=== PATIENT | male | born 2000 | race Hispanic/Latino ===

== ENCOUNTER 2021-03-31 01:01 | Emergency (ER) | payer BC ==
[2021-03-31 01:36] LABS: Absolute Lymphocytes (CBC) 3.2 K/uL (0.7-4.9); Basophils % 0.6 % (0-1.3); Hematocrit 47.5 % (39.6-49.0); Lymphocytes % 19.6 % (15.3-44.8); MPV 11.6 fL (7.6-11.3)
[2021-03-31 01:40] LABS: Protime INR 0.97
[2021-03-31] MEDS ORDERED: NA CHLORIDE 0.9% 1,000 ML ONE ×2 (01:48→04:20)
[2021-03-31 01:59] LABS: ALT/SGPT 14 U/L (12-78); AST/SGOT 18 U/L (15-37); Albumin 4.6 g/dL (3.4-5.0); Alkaline Phosphatase 73 U/L (45-117); BUN Blood Urea Nitrogen 10 mg/dL (7-18); Bicarbonate 22 mmol/L (21-32); Bilirubin Direct 0.3 mg/dL (0-0.2); Glucose Level 297 mg/dL (74-106); Potassium 3.9 mmol/L (3.5-5.1); Protein, Total 7.4 g/dL (6.4-8.2); Sodium Level 140 mmol/L (136-145)
[2021-03-31] MEDS ORDERED: ONDANSETRON 4 MG/2 ML VIAL ONE (03:53)
[2021-03-31] MEDS ORDERED: NALOXONE HCL 2 MG/2 ML VIAL ONE (04:25)
[2021-03-31 05:55] LABS: Barbiturates NEGATIVE (NEGATIVE); Benzodiazepines NEGATIVE (NEGATIVE); Cocaine NEGATIVE (NEGATIVE); METHAMPHETAM NEGATIVE (NEGATIVE); Methadone NEGATIVE (NEGATIVE); Opiates NEGATIVE (NEGATIVE); Phencyclidine NEGATIVE (NEGATIVE); THC Cannibis POSITIVE (NEGATIVE)
--- NOTE | 2021-03-31 06:39 | ER ---
Nurse's Notes [facility] Name: Roberth Keating Age: 20 yrs Sex: Male : 2000 Arrival Date: 03/31/2021 Time: 01:05 Bed 4 Private MD: Diagnosis: Opiate overdose;Cannabis abuse Presentation: 03/31 01:13 Chief complaint: EMS states: Toned out to pt's home by friend, reported pt took one ea Percocet at around 2230, EMS reported pt was hypoxic, hypotensive and unresponsive. EMS reports they gave 4 of Narcan and pt woke. En route he was A \T\ O x 3. Coronavirus screen: At this time, the client does not indicate any symptoms associated with coronavirus-19. Ebola Screen: No symptoms or risks identified at this time. Initial Sepsis Screen: Does the patient meet any 2 criteria? No. Patient's initial sepsis screen is negative. Does the patient have a suspected source of infection? No. Patient's initial sepsis screen is negative. Risk Assessment: Do you want to hurt yourself or someone else? Patient reports no desire to harm self or others. Onset of symptoms was March 31, 2021. 01:13 Acuity: ALAN 3 ea 01:13 Method Of Arrival: EMS: [facility] ea Historical: - Allergies: 01:16 No Known Allergies; ea - Home Meds: 01:16 None [Active]; ea - PSHx: 01:16 None; ea - Immunization history:: Adult Immunizations up to date. - Social history:: Smoking status: Patient denies any tobacco usage or history of. Screenin:11 Abuse screen: Denies threats or abuse. Nutritional screening: No deficits noted. ea Tuberculosis screening: No symptoms or risk factors identified. Fall Risk IV access (20 points). Assessment: 01:16 General: Appears in no apparent distress. Behavior is calm, cooperative, appropriate ea for age. Pain: Denies pain. Neuro: Level of Consciousness is awake, alert, obeys commands, Oriented to person, place, time. Cardiovascular: Patient's skin is warm and dry. Respiratory: Airway is patent Respiratory effort is even, unlabored, Respiratory pattern is regular, symmetrical. Derm: Skin is pink, warm \T\ dry. 01:20 Reassessment: Poison control notified, tox level workup, watch 3 to 4 hours recheck ea Tylenol level if less than 150 he may discharge. 01:51 Reassessment: Patient and/or family updated on plan of care and expected duration. Pain ea level reassessed. Patient is alert, oriented x 3, equal unlabored respirations, skin warm/dry/pink. 06:56 Reassessment: Patient and/or family updated on plan of care and expected duration. Pain ea level reassessed. Patient is alert, oriented x 3, equal unlabored respirations, skin warm/dry/pink. Discharge instruction given to patient verbalized the understanding of instruction. Pt left ED ambulatory tolerating well. accompanied by friend. Vital Signs: 01:13 BP 109 / 86; Pulse 119; Resp 17; Temp 97.7; Pulse Ox 100% ; ea 03:00 BP 100 / 69; Pulse 82; Resp 18; Pulse Ox 98% ; ea 04:00 BP 119 / 79; Pulse 94; Resp 18; Pulse Ox 100% on R/A; ea 06:32 BP 116 / 76; Pulse 97; Resp 17; Pulse Ox 98% ; ea ED Course: 01:05 Patient arrived in ED. lh3 01:05 Matteo Richards MD is Attending Physician. tw4 01:11 Maintain EMS IV. Dressing intact. Good blood return noted. Site clean \T\ dry. Gauge \T\ ea site: 20 G LAC . 01:16 Triage completed. ea 01:16 Arm band placed on right wrist. Patient placed in an exam room, on a stretcher, on ea pulse oximetry. 01:16 Patient has correct armband on for positive identification. Bed in low position. Call ea light in reach. Side rails up X2. 04:55 Solo Moss, RN is Primary Nurse. wg 06:32 No provider procedures requiring assistance completed. IV discontinued, intact, ea bleeding controlled, No redness/swelling at site. Pressure dressing applied. Administered Medications: 01:25 Drug: NS 0.9% 1000 ml Route: IV; Rate: 1 bolus; Site: left antecubital; ea 06:58 Follow up: IV Status: Completed infusion; IV Intake: 1000ml ea 03:29 Drug: Zofran (Ondansetron) 4 mg Route: IVP; Site: right antecubital; bc5 06:58 Follow up: Response: No adverse reaction ea 03:56 Drug: NS 0.9% 1000 ml Route: IV; Rate: 1 bolus; Site: left antecubital; ea 06:58 Follow up: Response: No adverse reaction; IV Status: Completed infusion; IV Intake: ea 1000ml Intake: 06:58 IV: 1000ml; Total: 1000ml. ea 06:58 IV: 1000ml; Total: 2000ml. ea Outcome: 06:38 Discharge ordered by . tw4 06:56 Discharged to home ambulatory, with family. ea 06:56 Condition: stable 06:56 Discharge instructions given to patient, Instructed on discharge instructions, follow up and referral plans. Demonstrated understanding of instructions, follow-up care. 06:57 Patient left the ED. ea Signatures: Corry Avila RN RN Matteo Grady MD MD tw4 Svetlana Pineda RN RN 3 Solo Moss, Taya Murcia, RN RN bc5 Corrections: (The following items were deleted from the chart) 01:13 01:11 Inserted saline lock: 20 gauge in left antecubital area, using aseptic technique. ea Blood collected. ea
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
[2021-03-31 07:03] VITALS: TEMP 97.7
[2021-03-31 07:07] VITALS: BP 116/76; O2SAT 98
== END 2021-03-31 06:57 | disposition home or self-care (01) ==
LOC: ER 01:01
DX: T40.2X1A Poisoning by other opioids, accidental (unintentional), initial encounter (principal); F12.10 Cannabis abuse, uncomplicated
CPT/HCPCS: 96361; 93005; 85025; 80048; 36415; 80320; 80329 ×2; 85610; 80076; 85730; 80307; 96374; 99284; J2310; J7030 ×2; J2405

== ENCOUNTER 2021-11-13 14:32 | Emergency (ER) | payer BC, OTHER ==
[2021-11-13] MEDS ORDERED: NA CHLORIDE 0.9% 1,000 ML ONE (15:12)
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
[2021-11-13 15:40] LABS: Urine Blood Negative (Negative); Urine Glucose Negative (Negative); Urine Protein Negative (Negative)
[2021-11-13 15:51] LABS: Barbiturates NEGATIVE (NEGATIVE); Benzodiazepines POSITIVE (NEGATIVE); Cocaine NEGATIVE (NEGATIVE); METHAMPHETAM NEGATIVE (NEGATIVE); Methadone NEGATIVE (NEGATIVE); Opiates NEGATIVE (NEGATIVE); Phencyclidine NEGATIVE (NEGATIVE); THC Cannibis NEGATIVE (NEGATIVE)
[2021-11-13 16:03] LABS: Absolute Lymphocytes (CBC) 1.2 K/uL (0.7-4.9); Lymphocytes % 16.3 % (15.3-44.8); RBC Red Blood Cell Count 4.82 M/uL (4.33-5.43)
[2021-11-13 16:19] LABS: BUN Blood Urea Nitrogen 11 mg/dL (7-18); Bicarbonate 26 mmol/L (21-32); Glucose Level 99 mg/dL (74-106); Potassium 4.1 mmol/L (3.5-5.1); Sodium Level 139 mmol/L (136-145)
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
[2021-11-13 18:19] VITALS: BP 97/61; O2SAT 99
== END 2021-11-13 18:12 | disposition home or self-care (01) ==
LOC: ER 14:32
DX: R41.82 Altered mental status, unspecified (principal); R53.1 Weakness; V48.5XXA Car driver injured in noncollision transport accident in traffic accident, initial encounter
CPT/HCPCS: 85025; 80048; 36415; 80320; 86900; 86850; 86901; 81003; 80307; 70450; 72125; 71260; 74177; Q9967; J7030; 93005

== ENCOUNTER 2021-11-15 13:36 | Emergency (ER) | payer OTHER ==
[2021-11-15] MEDS ORDERED: NA CHLORIDE 0.9% 1,000 ML IV ONE (13:37)
[2021-11-15] MEDS ORDERED: NALOXONE 0.4 MG/ML VIAL IM ONE (13:37)
[2021-11-15 14:17] LABS: Absolute Lymphocytes (CBC) 4.1 K/uL (0.7-4.9); Hematocrit 43.3 % (39.6-49.0); Lymphocytes % 43.3 % (15.3-44.8); MPV 11.7 fL (7.6-11.3); RBC Red Blood Cell Count 4.93 M/uL (4.33-5.43)
[2021-11-15 14:28] LABS: Protime INR 1.13
--- NOTE | 2021-11-15 14:31 | RAD REPORT ---
EXAM DESCRIPTION: CT - Head C Spine Mpr Wo Con - 11/15/2021 2:14 pm CLINICAL HISTORY: Head and neck injury status post fall. Head and neck pain. Overdose COMPARISON: None. TECHNIQUE: Computed axial tomography of the head and cervical spine was obtained. Sagittal and coronal reconstruction was performed. All CT scans are performed using dose optimization technique as appropriate and may include automated exposure control or mA/KV adjustment according to patient size. FINDINGS: An intracranial bleed is not seen. The ventricles are normal in caliber. An extra-axial fl uid collection is not noted.Fluid within the visualized sinuses and mastoids is not seen A cervical fracture is not visualized. No dislocation is noted. No high-grade central/foraminal stenosis seen IMPRESSION: No acute intracranial abnormality is seen. A cervical fracture is not visualized. If the patient continues to have symptoms to suggest intracra nial /spinal cord pathology then MRI would be recommended
[2021-11-15 15:16] LABS: Urine Blood Trace-intact (Negative); Urine Glucose Negative (Negative); Urine Protein 2+ (Negative); Urine Specific Gravity >=1.030 (1.005-1.030)
[2021-11-15 15:30] LABS: Barbiturates NEGATIVE (NEGATIVE); Benzodiazepines POSITIVE (NEGATIVE); Cocaine NEGATIVE (NEGATIVE); METHAMPHETAM NEGATIVE (NEGATIVE); Methadone NEGATIVE (NEGATIVE); Opiates NEGATIVE (NEGATIVE); Phencyclidine NEGATIVE (NEGATIVE); THC Cannibis POSITIVE (NEGATIVE)
[2021-11-15 15:34] LABS: ALT/SGPT 45 U/L (12-78); AST/SGOT 47 U/L (15-37); Albumin 4.3 g/dL (3.4-5.0); BUN Blood Urea Nitrogen 11 mg/dL (7-18); Bicarbonate 24 mmol/L (21-32); Bilirubin Direct 0.2 mg/dL (0-0.2); Glucose Level 180 mg/dL (74-106); Potassium 3.7 mmol/L (3.5-5.1); Protein, Total 6.9 g/dL (6.4-8.2); Sodium Level 144 mmol/L (136-145)
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
--- NOTE | 2021-11-15 15:40 | EDPHYS ---
Physician Documentation [facility] Name: Roberth Keating Age: 20 yrs Sex: Male : 2000 Arrival Date: 11/15/2021 Time: 13:38 Bed 3 Private MD: ED Physician Misael Valdez HPI: 11/15 13:55 This 20 yrs old Male presents to ER via Carried with complaints of Overdose. cp 13:55 The patient presents with decreased responsiveness. Onset: The symptoms/episode cp began/occurred just prior to arrival. 13:55 Possible causes: drug use. Current symptoms: In the emergency department the patient's cp symptoms are unchanged from the initial presentation, despite home interventions. Patient's baseline: Neuro: alert and fully oriented, Motor: no deficits, Ambulation: walks without assistance, Speech: normal. Unable to obtain HPI due to altered mental status. Historical: - Allergies: 13:47 No Known Allergies; jd3 - Home Meds: 13:47 None [Active]; jd3 - PMHx: 13:47 None; jd3 - PSHx: 13:47 bilateral feet; jd3 - Immunization history:: Adult Immunizations up to date, Client reports having NOT received the Covid vaccine. Flu vaccine status is unknown. - Social history:: Smoking status: Reported history of juuling and/or vaping. ROS: 14:00 Neuro: Positive for altered mental status. cp 14:00 Constitutional: Negative for fever. cp 14:00 Unable to obtain ROS due to altered mental status. Exam: 14:05 Constitutional: The patient appears non-diaphoretic, non-toxic, well developed, well cp nourished. 14:05 Head/Face: Normocephalic, atraumatic. cp 14:05 Eyes: Periorbital structures: appear normal, Pupils: pinpoint, bilaterally, Conjunctiva: normal, no exudate, no injection, Lids and lashes: appear normal, bilaterally. 14:05 ENT: External ear(s): are unremarkable, Ear canal(s): are normal, clear, TM's: dullness, bilaterally, Nose: is normal, Mouth: Lips: moist, Oral mucosa: pink and intact, moist, Posterior pharynx: Airway: no evidence of obstruction, patent. 14:05 Chest/axilla: Inspection: normal. 14:05 Cardiovascular: Rate: tachycardic, Rhythm: regular. 14:05 Respiratory: moderate respiratory distress is noted, Respirations: shallow respirations, that is moderate, Breath sounds: are clear throughout, no decreased breath sounds, no stridor, no wheezing. 14:05 Abdomen/GI: Inspection: abdomen appears normal, Palpation: soft, in all quadrants. 14:05 Neuro: Orientation: Not oriented to person, place, situation, Mentation: unable to follow commands. Vital Signs: 13:30 BP 127 / 60; Pulse 140; Resp 5; Pulse Ox 100% on 100% BVM; jd3 13:48 BP 111 / 64; Pulse 118; Resp 18 S; Temp 97.3(TE); Pulse Ox 100% on 2 lpm NC; Weight jd3 43.09 kg (R); Height 5 ft. 3 in. (160.02 cm) (R); Pain 0/10; 15:06 BP 108 / 72; Pulse 80; Resp 18 S; Pulse Ox 100% on R/A; jd3 13:48 Body Mass Index 16.83 (43.09 kg, 160.02 cm) jd3 MDM: 13:54 Patient medically screened. cp 14:00 Differential Diagnosis: alcohol intoxication, hypoglycemia, intracranial bleed, cp overdose, seizure, sepsis. 15:38 Data reviewed: vital signs, nurses notes, lab test result(s), EKG, radiologic studies, cp CT scan, plain films. 15:38 Test interpretation: by ED physician or midlevel provider: ECG, plain radiologic cp studies. Response to treatment: the patient's symptoms have markedly improved after treatment. 15:38 ED course: VSS. Patient responsive to IV Narcan. Now alert times 3, ambulating w/o cp assistance and patient requesting discharge to home. 11/15 13:54 Order name: Acetaminophen 11/15 13:54 Order name: Basic Metabolic Panel 11/15 15:37 Interpretation: Normal except: CL 111; GLUC 180. 11/15 13:54 Order name: CBC with Diff; Complete Time: 15:09 11/15 15:09 Interpretation: Normal except: WBC 9.5; MPV 11.7. 11/15 13:54 Order name: ETOH Level; Complete Time: 15:09 11/15 15:10 Interpretation: Reviewed. cp 11/15 13:54 Order name: Hepatic Function cp 11/15 15:36 Interpretation: Normal except: AST 47. cp 11/15 13:54 Order name: PT-INR; Complete Time: 15:09 cp 11/15 13:54 Order name: Ptt, Activated; Complete Time: 15:09 cp 11/15 13:54 Order name: Salicylate; Complete Time: 15:09 cp 11/15 13:54 Order name: Urine Drug Screen; Complete Time: 15:36 cp 11/15 13:54 Order name: EKG; Complete Time: 13:55 cp 11/15 13:54 Order name: CT Head C Spine; Complete Time: 15:09 cp 11/15 15:10 Interpretation: Reviewed report. cp 11/15 15:17 Order name: Urine Dipstick-Ancillary; Complete Time: 15:36 EDMS 11/15 15:36 Interpretation: Normal except: UKET 1+; UBLD Trace-intact; UPROT 2+. cp 11/15 13:54 Order name: EKG - Nurse/Tech; Complete Time: 13:55 cp 11/15 13:54 Order name: IV Saline Lock; Complete Time: 13:55 cp 11/15 13:54 Order name: Labs collected and sent; Complete Time: 13:55 cp 11/15 13:54 Order name: Suicide Screening ([place]); Complete Time: 13:55 cp 11/15 13:54 Order name: Urine Dipstick-Ancillary (obtain specimen); Complete Time: 15:44 cp Administered Medications: 13:30 Drug: NS 0.9% 1000 ml Route: IV; Rate: 1 bolus; Site: left antecubital; jd3 14:30 Follow up: Response: No adverse reaction; IV Status: Completed infusion; IV Intake: jd3 1000ml 13:30 Drug: NARcan (naloxone) 2 mg Route: IVP; Site: left antecubital; jd3 14:30 Follow up: Response: No adverse reaction jd3 Disposition: 11/16 15:39 Co-signature as Attending Physician, Misael Valdez MD I agree with the assessment and kdr plan of care. Disposition Summary: 11/15/21 15:39 Discharge Ordered Location: Home cp Problem: new cp Symptoms: have improved cp Condition: Stable cp Diagnosis - Adverse effect of benzodiazepines cp - Adverse effect of other opioids, initial encounter cp Followup: cp - With: Emergency Department - When: As needed - Reason: Worsening of condition Discharge Instructions: - Discharge Summary Sheet cp - Opioid Overdose cp - Benzodiazepine Overdose cp Forms: - Medication Reconciliation Form cp - Thank You Letter cp - Antibiotic Education cp - Prescription Opioid Use cp Signatures: Dispatcher [employer] EDMS Misael Valdez MD MD kdr Page, Corey, PA PA cp Davies, Jonathon RN RN jd3
[2021-11-15 15:48] LABS: Alkaline Phosphatase 53 U/L (45-117)
[2021-11-15 16:59] VITALS: TEMP 97.3; O2SAT 100
[2021-11-15 17:01] VITALS: BP 108/72
--- NOTE | 2021-11-16 09:45 | EKG ---
Test Date: 2021-11-15 Test Time: 13:39:13 Coroner Technician: MEHDI MEASUREMENT RESULTS: Intervals: Rate: 116 NH: 156 QRSD: 92 QT: 340 QTc: 472 [place]: P: 85 NH: 156 QRS: 91 T: 75 INTERPRETIVE STATEMENTS: Sinus tachycardia Rightward axis Borderline ECG Compared to ECG 11/13/2021 14:42:10 Right-axis deviation now present Atrial abnormality no longer present Electronically Signed On 11-16-21 09:44:00 CDT by Stephen Garrison
== END 2021-11-15 15:47 | disposition home or self-care (01) ==
LOC: ER 13:36
DX: R41.82 Altered mental status, unspecified (principal); T42.4X5A Adverse effect of benzodiazepines, initial encounter; T40.2X5A Adverse effect of other opioids, initial encounter
CPT/HCPCS: 96361; 93005; 85025; 80048; 36415; 80320; 80329 ×2; 85610; 80076; 85730; 81003; 80307; 70450; 72125; 96374; 99291; 99292; J2310; J7030

== ENCOUNTER 2021-11-27 15:16 | Emergency (ER) | payer OTHER ==
[2021-11-27] MEDS ORDERED: NALOXONE 0.4 MG/ML VIAL ONE (15:21)
[2021-11-27] MEDS ORDERED: NALOXONE HCL 2 MG/2 ML VIAL ONE (15:24)
[2021-11-27 15:42] LABS: Absolute Lymphocytes (CBC) 2.9 K/uL (0.7-4.9); Hematocrit 40.7 % (39.6-49.0); Lymphocytes % 19.3 % (15.3-44.8); MPV 10.4 fL (7.6-11.3); RBC Red Blood Cell Count 4.66 M/uL (4.33-5.43)
[2021-11-27 15:46] LABS: Protime INR 1.02
[2021-11-27 15:58] LABS: AST/SGOT 10 U/L (15-37); Alkaline Phosphatase 66 U/L (45-117); BUN Blood Urea Nitrogen 14 mg/dL (7-18); Bicarbonate 28 mmol/L (21-32); Bilirubin Direct 0.2 mg/dL (0-0.2); Bilirubin Total 0.5 mg/dL (0.2-1.0); Glucose Level 208 mg/dL (74-106); Potassium 3.5 mmol/L (3.5-5.1); Sodium Level 141 mmol/L (136-145)
[2021-11-27 16:03] LABS: ALT/SGPT 13 U/L (12-78)
[2021-11-27] MEDS ORDERED: NA CHLORIDE 0.9% 1,000 ML ONE (16:22)
--- NOTE | 2021-11-27 19:01 | EDPHYS ---
Physician Documentation [facility] Name: Roberth Keating Age: 20 yrs Sex: Male : 2000 Arrival Date: 11/27/2021 Time: 15:18 Bed 3 Private MD: ED Physician Denis Dupree HPI: 11/27 15:25 This 20 yrs old Male presents to ER via Carried with complaints of Possible ms3 Overdose. 15:25 The patient presents to the emergency department after a known overdose, a result of ms3 recreational substance abuse. Context: Time: 2 hour(s) ago, Extent: Less than 1 Percocet. Associated signs and symptoms: The patient has no apparent associated signs or symptoms. Severity of symptoms: Pain is currently a 0 / 10. 20-year-old male with past medical history of opioid overdose presents for overdose. Patient's father states patient checked himself on a rehab after 7 days and came home. Patient's father was at home for lunch and patient's friend was taking patient back to rehab when patient's father noted patient to be altered. Patient's father then took patient to the emergency department.. Historical: - Allergies: 15:22 No Known Allergies; ss - PSHx: 15:22 bilateral feet; ss - Immunization history:: Adult Immunizations unknown. - Social history:: Smoking status: unknown. ROS: 15:46 Constitutional: Negative for fever, and chills. Eyes: Negative for injury, pain, ms3 redness, and discharge, Cardiovascular: Negative for chest pain, and palpitations. Respiratory: Negative for shortness of breath, cough, wheezing, and pleuritic chest pain, Abdomen/GI: Negative for abdominal pain, nausea, vomiting, diarrhea, and constipation, MS/Extremity: Negative for injury and deformity, Skin: Negative for injury, rash, and discoloration. Exam: 15:21 ECG was reviewed by the Attending Physician. ms3 15:46 Constitutional: This is a well developed, well nourished patient who is awake, alert, ms3 and in no acute distress. Head/Face: Normocephalic, atraumatic. Neck: Trachea midline, no cervical lymphadenopathy. Supple, full range of motion without nuchal rigidity, or vertebral point tenderness. No Meningismus. Chest/axilla: Normal chest wall appearance and motion. Nontender with no deformity. Cardiovascular: Regular rate and rhythm with a normal S1 and S2. No gallops, murmurs, or rubs. Normal PMI, no JVD. No pulse deficits. Respiratory: Lungs have equal breath sounds bilaterally, clear to auscultation and percussion. No rales, rhonchi or wheezes noted. No increased work of breathing, no retractions or nasal flaring. Abdomen/GI: Soft, non-tender, with normal bowel sounds. No distension or tympany. No guarding or rebound. No evidence of tenderness throughout. Back: No spinal tenderness. No costovertebral tenderness. Full range of motion. Skin: Warm, dry with normal turgor. Normal color with no rashes, no lesions, and no evidence of cellulitis. 15:46 Neuro: Orientation: is normal, Mentation: slow to respond. Vital Signs: 15:15 Pulse Ox 80% on R/A; ss 15:22 BP 117 / 71; Pulse 140; Resp 14; Pulse Ox 100% on Non-rebreather mask; ss 15:34 BP 106 / 78; Pulse 109; Resp 15 S; Pulse Ox 100% on R/A; jd3 16:55 BP 90 / 60; Pulse 66; Resp 16 S; Pulse Ox 100% on R/A; jd3 18:00 BP 98 / 67; Pulse 67; Resp 18; Temp 98.0; Pulse Ox 99% on R/A; ph 19:00 BP 91 / 60; Pulse 81; Resp 16; Pulse Ox 100% on R/A; jb4 MDM: 15:34 Patient medically screened. ms3 17:04 ED course: patient mentation improved. Will continue to monitor. ms3 21:36 Differential diagnosis: Ingestion/exposure to Opioid hypoglycemia, Electrolyte ms3 abnormality. Data reviewed: vital signs, nurses notes, lab test result(s), EKG. Counseling: I had a detailed discussion with the patient and/or guardian regarding: the historical points, exam findings, and any diagnostic results supporting the discharge/admit diagnosis, lab results, the need for outpatient follow up, to return to the emergency department if symptoms worsen or persist or if there are any questions or concerns that arise at home. ED course: Discussed EKG, labs, and PE findings with patient. Patient to follow up with PMD in 2-3 days. Patient understands/ agrees with plan. All questions answered. Return precautions given to include worsening symptoms, or any other concerns. Patient is improved, in NAD, non-toxic appearing, ambulatory in ED, speaking full sentences. Patient father at bedside and agrees with discharge and will be taking patient home and to rehab. Discussed Narcan Rx use with patient's father in detail.. 11/27 15:24 Order name: Acetaminophen; Complete Time: 16:13 ms3 11/27 15:24 Order name: Basic Metabolic Panel; Complete Time: 16:13 ms3 11/27 15:24 Order name: CBC with Diff; Complete Time: 16:13 ms3 11/27 15:24 Order name: ETOH Level; Complete Time: 16:13 ms3 11/27 15:24 Order name: Hepatic Function; Complete Time: 16:13 ms3 11/27 15:24 Order name: PT-INR; Complete Time: 16:13 ms3 11/27 15:24 Order name: Ptt, Activated; Complete Time: 16:13 ms3 11/27 15:24 Order name: Salicylate ms3 11/27 15:24 Order name: EKG; Complete Time: 15:25 ms3 11/27 15:24 Order name: EKG - Nurse/Tech; Complete Time: 15:27 ms3 11/27 15:24 Order name: IV Saline Lock; Complete Time: 15:27 ms3 11/27 15:24 Order name: Labs collected and sent; Complete Time: 15:34 ms3 11/27 15:24 Order name: Suicide Screening ([place]); Complete Time: 15:27 ms3 EC:21 Rate is 138 beats/min. Rhythm is regular. QRS [place] is Normal. QRS interval is normal. ms3 Clinical impression: Sinus tachycardia. Interpreted by me. Administered Medications: 15:17 Drug: NARcan (naloxone) 0.4 mg Route: IVP; Site: right antecubital; ss 15:23 Follow up: Response: No adverse reaction; Marked relief of symptoms ss 15:20 Drug: NARcan (naloxone) 1 mg Route: IVP; Site: right antecubital; ph 16:20 Follow up: Response: No adverse reaction jd3 15:24 CANCELLED (errorr): NARcan (naloxone) 1 mg IVP once ms3 Disposition Summary: 11/27/21 19:00 Discharge Ordered Location: Home ms3 Condition: Stable ms3 Diagnosis - Accidental Drug overdose- opioid ms3 - Altered mental status, unspecified ms3 Followup: ms3 - With: Wong Aldridge MD - When: 2 - 3 days - Reason: Recheck today's complaints Discharge Instructions: - Discharge Summary Sheet jmm - Opioid Overdose ms3 Forms: - Medication Reconciliation Form ms3 - Thank You Letter ms3 - Antibiotic Education ms3 - Prescription Opioid Use ms3 Prescriptions: - Narcan 4 mg/actuation Nasal spray,non-aerosol - spray 0.1 milliliter by INTRANASAL route as directed may give additional doses jmm every 2-3 mins (alternating nostrils) until response or medical assistance; 1 Pump; Refills: 0, Product Selection Permitted Critical care time excluding procedures: 21:36 Critical care time: Bedside Care: 25 minutes, Consultation: 10 minutes, Family ms3 Intervention: 10 minutes. Total time: 45 minutes Signatures: Dispatcher [employer] EDMercy Muñoz RN RN April Ruiz ph D, RN RNavies, Jonathon, RN RN jd3 Denis Dupree, DO ms3 Corrections: (The following items were deleted from the chart) 15:24 15:23 NARcan (naloxone) 1 mg IVP once ordered. ms3 ms3 19:23 15:24 Urine Dipstick-Ancillary ordered. ms3 jb4
--- NOTE | 2021-11-27 19:01 | ER ---
Nurse's Notes [facility] Name: Roberth Keating Age: 20 yrs Sex: Male : 2000 Arrival Date: 11/27/2021 Time: 15:18 Bed 3 Private MD: Diagnosis: Accidental Drug overdose- opioid;Altered mental status, unspecified Presentation: 11/27 15:20 Chief complaint: Parent and/or Guardian states: "He just got out of rehab today and his ss friend dropped him off and it looked like he took something. His friend said, "I don't know what he did." Pt is minimally responsive upon arrival. Father carried patient to exam room. 80% on RA. Coronavirus screen: Client denies travel out of the [place] in the last 14 days. Ebola Screen: Patient denies exposure to infectious person. Patient denies travel to an Ebola-affected area in the 21 days before illness onset. Initial Sepsis Screen: Does the patient meet any 2 criteria? No. Patient's initial sepsis screen is negative. Does the patient have a suspected source of infection? No. Patient's initial sepsis screen is negative. Risk Assessment: Do you want to hurt yourself or someone else? Patient reports no desire to harm self or others. Note Pt has history of overdose on Percocet. Onset of symptoms was November 27, 2021. 15:20 Method Of Arrival: Carried ss 15:20 Acuity: ALAN 1 ss Historical: - Allergies: 15:22 No Known Allergies; ss - PSHx: 15:22 bilateral feet; ss - Immunization history:: Adult Immunizations unknown. - Social history:: Smoking status: unknown. Screenin:26 Abuse screen: Denies threats or abuse. Nutritional screening: Nutritional screening: No jd3 deficits noted. Tuberculosis screening: No symptoms or risk factors identified. Fall Risk Ambulatory Aid- None/Bed Rest/Nurse Assist (0 pts). Gait- Normal/Bed Rest/Wheelchair (0 pts) Mental Status- Oriented to own ability (0 pts). Total Smith Fall Scale indicates No Risk (0-24 pts). Assessment: 15:24 General: Appears comfortable, Behavior is calm, cooperative, drowsy. Pain: Denies pain. jd3 Neuro: Cabrera Agitation-Sedation Scale (RASS): -1 Drowsy Level of Consciousness is awake, obeys commands, lethargic, Oriented to person, place, time, situation. Cardiovascular: Heart tones S1 S2 present Capillary refill < 3 seconds Patient's skin is warm and dry. Rhythm is sinus tachycardia. Respiratory: Airway is patent Respiratory effort is even, unlabored, shallow, Respiratory pattern is regular, symmetrical, Breath sounds are clear bilaterally. Denies cough, shortness of breath. GI: No signs and/or symptoms were reported involving the gastrointestinal system. : No signs and/or symptoms were reported regarding the genitourinary system. EENT: No signs and/or symptoms were reported regarding the EENT system. Derm: Skin is intact, Skin is dry, Skin is normal, Skin temperature is warm. Musculoskeletal: Circulation, motion, and sensation intact. Range of motion: intact in all extremities. 15:34 General: Appears comfortable, Behavior is calm, cooperative, appropriate for age. Pain: jd3 Denies pain. Neuro: Cabrera Agitation-Sedation Scale (RASS): 0 - Alert and Calm Level of Consciousness is awake, alert, obeys commands, Oriented to person, place, time, situation. 16:55 Reassessment: Patient appears in no apparent distress at this time. No changes from jd3 previously documented assessment. Patient and/or family updated on plan of care and expected duration. Pain level reassessed. Patient is alert, oriented x 3, equal unlabored respirations, skin warm/dry/pink. 18:06 Reassessment: Patient appears in no apparent distress at this time. No changes from jd3 previously documented assessment. Patient and/or family updated on plan of care and expected duration. Pain level reassessed. Patient is alert, oriented x 3, equal unlabored respirations, skin warm/dry/pink. Patient denies pain at this time. Patient states symptoms have improved. 19:22 Reassessment: Patient appears in no apparent distress at this time. Patient and/or jb4 family updated on plan of care and expected duration. Pain level reassessed. Patient is alert, oriented x 3, equal unlabored respirations, skin warm/dry/pink. Vital Signs: 15:15 Pulse Ox 80% on R/A; ss 15:22 BP 117 / 71; Pulse 140; Resp 14; Pulse Ox 100% on Non-rebreather mask; ss 15:34 BP 106 / 78; Pulse 109; Resp 15 S; Pulse Ox 100% on R/A; jd3 16:55 BP 90 / 60; Pulse 66; Resp 16 S; Pulse Ox 100% on R/A; jd3 18:00 BP 98 / 67; Pulse 67; Resp 18; Temp 98.0; Pulse Ox 99% on R/A; ph 19:00 BP 91 / 60; Pulse 81; Resp 16; Pulse Ox 100% on R/A; jb4 ED Course: 15:18 Patient arrived in ED. ds1 15:20 Inserted saline lock: 14 gauge in right antecubital area, using aseptic technique. jd3 15:22 Triage completed. ss 15:22 Arm band placed on right wrist. ss 15:23 Denis Dupree DO is Attending Physician. ms3 15:23 April Hanna, RN is Primary Nurse. ph 15:26 Patient has correct armband on for positive identification. Placed in gown. Bed in low jd3 position. Call light in reach. Side rails up X2. Adult w/ patient. Client placed on continuous cardiac and pulse oximetry monitoring. NIBP monitoring applied. compliance monitor on. Pulse ox on. NIBP on. 18:59 Wong Aldridge MD is Referral Physician. ms3 19:24 No provider procedures requiring assistance completed. IV discontinued, intact, jb4 bleeding controlled, No redness/swelling at site. Pressure dressing applied. Administered Medications: 15:17 Drug: NARcan (naloxone) 0.4 mg Route: IVP; Site: right antecubital; ss 15:23 Follow up: Response: No adverse reaction; Marked relief of symptoms ss 15:20 Drug: NARcan (naloxone) 1 mg Route: IVP; Site: right antecubital; ph 16:20 Follow up: Response: No adverse reaction jd3 15:24 CANCELLED (errorr): NARcan (naloxone) 1 mg IVP once ms3 Outcome: 19:00 Discharge ordered by . ms3 19:24 Discharged to home ambulatory. jb4 19:24 Condition: stable 19:24 Discharge instructions given to patient, Instructed on discharge instructions, follow up and referral plans. medication usage, Demonstrated understanding of instructions, follow-up care, medications, Prescriptions given X 1. 19:24 Patient left the ED. jb4 Signatures: Joyce Tucker ds1 Mercy White, RN RN ss April Hanna, RN RN ph Grupo Carrizales, RN RN jb4 Anastacio Walls, RN RN jd3 Denis Dupree, DO MAR ms3
[2021-11-27 21:00] VITALS: TEMP 98
[2021-11-27 21:01] VITALS: BP 91/60; O2SAT 100
--- NOTE | 2021-11-28 07:46 | EKG ---
Test Date: 2021-11-27 Test Time: 15:21:39 Men'S Designer: GARRY MEASUREMENT RESULTS: Intervals: Rate: 138 SC: 136 QRSD: 86 QT: 288 QTc: 436 Wallace: P: 88 SC: 136 QRS: 90 T: 85 INTERPRETIVE STATEMENTS: Sinus tachycardia Right atrial enlargement Rightward axis Pulmonary disease pattern Abnormal ECG Compared to ECG 11/15/2021 13:39:13 Atrial abnormality now present Electronically Signed On 11-28-21 07:43:30 CDT by Stephen Garrison
== END 2021-11-27 19:24 | disposition home or self-care (01) ==
LOC: ER 15:16
DX: T40.2X1A Poisoning by other opioids, accidental (unintentional), initial encounter (principal)
CPT/HCPCS: 93005; 85025; 80048; 36415; 80320; 80329 ×2; 85610; 80076; 85730; 96374; 99291; 99292; J2310 ×2; J7030

== ENCOUNTER 2022-11-27 17:35 | Emergency (ER) | payer OTHER ==
[2022-11-27] MEDS ORDERED: NALOXONE HCL 2 MG/2 ML VIAL ONE (17:39)
[2022-11-27] MEDS ORDERED: NA CHLORIDE 0.9% 1,000 ML ONE (17:44)
[2022-11-27 18:04] LABS: Absolute Lymphocytes (CBC) 2.7 K/uL (0.7-4.9); Hematocrit 45.2 % (39.6-49.0); Lymphocytes % 26.4 % (15.3-44.8); MCV 89.2 fL (80-100); MPV 11.1 fL (7.6-11.3); RBC Red Blood Cell Count 5.07 M/uL (4.33-5.43)
[2022-11-27 18:05] LABS: Arterial Blood Carboxyhemoglob 0.7 % (0-1.5); Blood Gas Oxyhemoglobin 96.4 % (94-97); Blood O2 Saturation 98.6 % (92-98.5)
[2022-11-27 18:05] LABS: Specific Gravity < 1.005 (1.005-1.030); Urine Bilirubin NEGATIVE (Negative); Urine Blood Negative (Negative); Urine Clarity Clear (Clear); Urine Color Colorless (Yellow); Urine Glucose 3+ (Negative); Urine Protein NEGATIVE (Negative); Urine Urobilinogen Normal (Normal)
[2022-11-27 18:11] LABS: Protime INR 1.05
--- NOTE | 2022-11-27 18:12 | RAD REPORT ---
EXAM DESCRIPTION: RAD - Chest Single View - 11/27/2022 5:59 pm CLINICAL HISTORY: SOB COMPARISON: <Comparisons> FINDINGS: Lines: None. Lungs: No evidence of edema or pneumonia. Pleural: No significant pleural effusions or pneumothorax. Cardiac: The heart size is within normal limits. Mediastinum: Within normal limits. Bones: No acute fractures. Other: None IMPRESSION: No acute cardiopulmonary disease.
[2022-11-27 18:15] LABS: Barbiturates NEGATIVE (NEGATIVE); Benzodiazepines NEGATIVE (NEGATIVE); Cocaine NEGATIVE (NEGATIVE); METHAMPHETAM NEGATIVE (NEGATIVE); Methadone NEGATIVE (NEGATIVE); Opiates NEGATIVE (NEGATIVE); Phencyclidine NEGATIVE (NEGATIVE); THC Cannibis NEGATIVE (NEGATIVE)
[2022-11-27 18:27] LABS: Albumin 4.3 g/dL (3.4-5.0); Bilirubin Direct 0.2 mg/dL (0-0.2); Bilirubin Indirect, Calculated 0.4 (0.2-0.8); Bilirubin Total 0.6 mg/dL (0.2-1.0); Potassium 2.8 mEq/L (3.5-5.1)
--- NOTE | 2022-11-27 18:42 | RAD REPORT ---
EXAM DESCRIPTION: CT - [id number] - 11/27/2022 6:28 pm CLINICAL HISTORY: Trauma, head and neck injury. AMS COMPARISON: Head C Spine Mpr Wo Con dated 11/15/2021 TECHNIQUE: Axial 5 mm thick images of the head were obtained. Axial 2 mm thick images of the cervical spine were obtained with sagittal and coronal reconstruction images generated and reviewed. All CT scans are performed using dose optimization technique as appropriate and may include automated exposure control or mA/KV adjustment according to patient size. FINDINGS: CT HEAD WITHOUT CONTRAST: No acute hemorrhage, hydrocephalus or extra-axial collection is identified.No areas of brain edema or midline shift. The paranasal sinuses and mastoids are clear.The calvarium is intact. CT CERVICAL SPINE WITHOUT CONTRAST: No fracture or subluxation.No prevertebral soft tissues swelling is identified. IMPRESSION: No acute intracranial or cervical spine findings.
[2022-11-27] MEDS ORDERED: KCL 20 MEQ/100 mL IVPB 100 ML IV ONE (19:01)
[2022-11-27] MEDS ORDERED: NA CHLORIDE 0.9% 500 ML ONE (19:01)
[2022-11-27] MEDS ORDERED: POTASSIUM 25 MEQ EFFERV TAB ONE (19:49)
--- NOTE | 2022-11-28 00:42 | ER ---
Nurse's Notes [facility] Name: Roberth Keating Age: 21 yrs Sex: Male : 2000 Arrival Date: 11/27/2022 Time: 17:35 Bed 2 Private MD: Diagnosis: Poisoning by other narcotics, accidental (unintentional), initial encounter;Hypokalemia Presentation: 11/27 17:35 Chief complaint: Friend and/or Co-Worker states: OVERDOSE ON PERCOCET PER FRIEND. bp Coronavirus screen: At this time, the client does not indicate any symptoms associated with coronavirus-19. Ebola Screen: No symptoms or risks identified at this time. Initial Sepsis Screen: Does the patient meet any 2 criteria? No. Patient's initial sepsis screen is negative. Does the patient have a suspected source of infection? No. Patient's initial sepsis screen is negative. Risk Assessment: Do you want to hurt yourself or someone else? Unable to obtain. Onset of symptoms is unknown. 17:35 Method Of Arrival: Wheelchair bp 17:35 Acuity: ALAN 1 bp Triage Assessment: 17:36 General: Appears distressed, Behavior is unresponsive. Pain: Unable to use pain scale. bp Patient is unresponsive. EENT: No deficits noted. Neuro: Level of Consciousness is unresponsive. Cardiovascular: No deficits noted. Respiratory: Respiratory pattern is agonal. GI: No signs and/or symptoms were reported involving the gastrointestinal system. : No signs and/or symptoms were reported regarding the genitourinary system. Derm: No deficits noted. Musculoskeletal: No deficits noted. Historical: - Allergies: 17:36 No Known Allergies; bp - PSHx: 17:36 bilateral feet; bp - Immunization history:: Adult Immunizations unknown. - Social history:: Smoking status: unknown. Screenin:00 [facility] ED Fall Risk Assessment (Adult) History of falling in the last 3 months, db including since admission No falls in past 3 months (0 pts) Confusion or Disorientation No (0 pts) Intoxicated or Sedated Yes (3 pts) Impaired Gait No (0 pts) Mobility Assist Device Used No (0 pt) Altered Elimination No (0 pt) Score/Fall Risk Level 0 - 2 = Low Risk Oriented to surroundings, Maintained a safe environment. Abuse screen: Denies threats or abuse. Denies injuries from another. Nutritional screening: No deficits noted. Tuberculosis screening: No symptoms or risk factors identified. Assessment: 17:35 Reassessment: patient arrived to ED non responsive and not breathing. Immediate db assisted breathing and via Bag valve mask, Dr. Ridley and Ramakrishna Singh at bedside with nursing staff and RT. Pt given Narcan 2mg at 1735 upon successful IV insertion. Patient with spontaneous respirations shortly after. placed on Nasal cannula 2L. Providers and nursing staff at bedside. 17:40 Reassessment: patient awake drowsy answering some questions. States took Percocet. db Provider notified. Neuro: Level of Consciousness is awake, confused. 17:57 Reassessment: Patient appears in no apparent distress at this time. Patient is alert, db oriented x 3, equal unlabored respirations, skin warm/dry/pink. patient now awake alert and re oriented. Patient now talking without difficulty. provider reassed. Neuro: Level of Consciousness is awake, alert, obeys commands, Oriented to person, place, time, situation. 18:05 Reassessment: Patient appears in no apparent distress at this time. Dr. Ridley at db patient bedside. patient is speaking with physician. Reassessment: Patient appears in no apparent distress at this time. Patient is alert, oriented x 3, equal unlabored respirations, skin warm/dry/pink. General: Appears in no apparent distress. comfortable, Behavior is calm, cooperative. Pain: Denies pain. Neuro: Level of Consciousness is awake, alert, obeys commands, confused, Oriented to person, place, time, situation. 18:05 Neuro: Speech is normal. db 19:08 Reassessment: Patient appears in no apparent distress at this time. Patient and/or db family updated on plan of care and expected duration. Pain level reassessed. Patient is alert, oriented x 3, equal unlabored respirations, skin warm/dry/pink. patient given phone. General: Appears in no apparent distress. comfortable, Behavior is calm, cooperative. 19:40 Reassessment: Patient appears in no apparent distress at this time. Patient and/or aa9 family updated on plan of care and expected duration. Pain level reassessed. Patient is alert, oriented x 3, equal unlabored respirations, skin warm/dry/pink. Patient denies pain at this time. 21:14 Reassessment: Patient and/or family updated on plan of care and expected duration. Pain pf1 level reassessed. Patient is alert, oriented x 3, equal unlabored respirations, skin warm/dry/pink. 22:00 GI: Reports vomiting, states " It was that orange potassium drink, it just didn't taste aa9 right.". 22:58 Reassessment: Patient appears in no apparent distress at this time. Patient and/or aa9 family updated on plan of care and expected duration. Pain level reassessed. Patient is alert, oriented x 3, equal unlabored respirations, skin warm/dry/pink. Patient denies pain at this time. 11/28 00:00 Reassessment: Patient appears in no apparent distress at this time. Patient and/or pf1 family updated on plan of care and expected duration. Pain level reassessed. Patient is alert, oriented x 3, equal unlabored respirations, skin warm/dry/pink. Patient denies pain at this time. Patient states feeling better. Patient states symptoms have improved. Vital Signs: 11/27 17:30 BP 154 / 86; Pulse 122; Resp 8 A; Pulse Ox 99% ; db 17:35 BP 126 / 84; Pulse 108; Resp 22 A; Pulse Ox 100% on 4 lpm NC; db 17:40 BP 120 / 93; Pulse 119; Resp 17; Pulse Ox 100% on 4 lpm NC; db 17:45 BP 104 / 78; Pulse 112; Resp 22; Pulse Ox 100% on 4 lpm NC; db 17:55 BP 121 / 79; Pulse 95; Resp 18; Pulse Ox 100% on 4 lpm NC; db 19:00 BP 115 / 68; Pulse 95; Resp 14; Pulse Ox 100% ; bp 20:00 BP 91 / 57; Pulse 72; Resp 12; Pulse Ox 96% on R/A; pf1 21:00 BP 117 / 71; Pulse 87; Resp 17; Pulse Ox 100% ; pf1 22:57 BP 107 / 80; Pulse 67; Resp 15 S; Temp 98.1(O); Pulse Ox 100% ; aa9 0512 00:07 BP 113 / 70; Pulse 77; Resp 15 S; Pulse Ox 100% ; aa9 00:45 BP 113 / 65; Pulse 77; Resp 14; Temp 98; Pulse Ox 100% on R/A; Pain 0/10; pf1 00:45 Pain Scale: Adult pf1 Yas Coma Score: 11/27 18:00 Eye Response: none(1). Motor Response: none(1). Verbal Response: none(1). Total: 3. cp ED Course: 17:30 Inserted saline lock: 20 gauge in left antecubital area, using aseptic technique. Blood db collected. 17:30 Inserted saline lock: 20 gauge in right antecubital area, using aseptic technique. db 17:35 Patient arrived in ED. bp 17:36 Triage completed. bp 17:37 Arm band placed on. bp 17:38 Reed cath inserted, using sterile technique, 16 Fr., by ED staff, balloon inflated, to db gravity drainage, urine specimen collected. 17:41 Abisai Singh PA is PHCP. cp 17:41 Luis Ridley MD is Attending Physician. cp 17:44 Sulma Moreno, NIKIA is Primary Nurse. db 18:00 XRAY Chest (1 view) In Process Unspecified. EDMS 18:04 Patient has correct armband on for positive identification. Bed in low position. Call db light in reach. Side rails up X2. Client placed on continuous cardiac and pulse oximetry monitoring. NIBP monitoring applied. 18:30 CT Head C Spine In Process Unspecified. EDMS 19:07 Patient tolerated well. Reed cath removed intact, balloon deflated. db 22:56 Tylenol Level Sent. aa9 0512 00:58 No provider procedures requiring assistance completed. IV discontinued, intact, pf1 bleeding controlled, No redness/swelling at site. Pressure dressing applied. Administered Medications: 11/27 17:37 Drug: Naloxone IVP 2 mg Route: IVP; Site: left antecubital; iw 17:40 Drug: NS 0.9% IV 1000 ml Route: IV; Rate: 1 bolus; Site: right antecubital; db 19:00 Drug: Potassium Chloride IV 20 mEq Route: IV; Rate: calculated rate; Site: right bp forearm; 21:00 Follow up: Response: No adverse reaction; Marked relief of symptoms; IV Status: pf1 Completed infusion 19:47 Drug: Potassium PO Effervescent Tablet 50 mEq Route: PO; aa9 20:30 Follow up: Response: No adverse reaction; Marked relief of symptoms pf1 19:47 Drug: Potassium PO Effervescent Tablet 25 mEq Route: PO; aa9 20:30 Follow up: Response: No adverse reaction; Marked relief of symptoms pf1 Medication: 11/28 00:00 VIS not applicable for this client. pf1 Outcome: 00:41 Discharge ordered by . cp 00:58 Discharged to home ambulatory, with family. pf1 00:58 Condition: improved 00:58 Discharge instructions given to patient, Instructed on discharge instructions, follow up and referral plans. Demonstrated understanding of instructions, follow-up care, medications, Prescriptions given X 1. 01:03 Patient left the ED. pf1 Signatures: Dispatcher [employer] EDMagalie Reyez, RN RN iw Abisai Singh PA PA cp Peltier, Brian, RN RN bp Bee Barone RN RN aa9 Sulma Moreno, RN RN db Kristina valdivia RN RN pf1
--- NOTE | 2022-11-28 00:42 | EDPHYS ---
Physician Documentation [facility] Name: Roberth Keating Age: 21 yrs Sex: Male : 2000 Arrival Date: 11/27/2022 Time: 17:35 Bed 2 Private MD: ED Physician Luis Ridley HPI: 11/27 17:50 This 21 yrs old Male presents to ER via Wheelchair with complaints of Overdose.cp 17:50 The patient presents to the emergency department with a possible overdose. Context: cp Method: the patient has a confirmed or suspected ingestion, of narcotics, Time: the patient's OD/poisoning occurred at an unknown time, Extent: Associated signs and symptoms: Pertinent positives: decreased level of consciousness. Severity of symptoms: in the emergency department the symptoms are worse markedly. Historical: - Allergies: 17:36 No Known Allergies; bp - PSHx: 17:36 bilateral feet; bp - Immunization history:: Adult Immunizations unknown. - Social history:: Smoking status: unknown. ROS: 17:55 Constitutional: Negative for fever. cp 17:55 Neuro: Positive for altered mental status. cp 17:55 Unable to obtain ROS due to obtunded state. Exam: 17:58 Head/Face: Normocephalic, atraumatic. cp 17:58 Constitutional: The patient appears well developed, well nourished. 17:58 Eyes: Periorbital structures: appear normal, Conjunctiva: normal, no exudate, no injection, Sclera: no appreciated abnormality, Lids and lashes: appear normal, bilaterally. 17:58 ENT: External ear(s): are unremarkable, Ear canal(s): are normal, clear, TM's: dullness, bilaterally, Nose: is normal, Mouth: is normal, Posterior pharynx: Airway: no evidence of obstruction, patent. 17:58 Chest/axilla: Inspection: normal. 17:58 Cardiovascular: Rate: tachycardic, Rhythm: regular, Pulses: Pulses are 2+ in right carotid pulse. Edema: is not appreciated, JVD: is not appreciated. 17:58 Respiratory: severe repiratory distress is noted. 17:58 Abdomen/GI: Inspection: abdomen appears normal. 17:58 Musculoskeletal/extremity: Exam is negative for decreased range of motion, deformity, injury. 17:58 Neuro: Orientation: unable to test, unresponsive, Mentation: unable to test, unresponsive. Vital Signs: 17:30 BP 154 / 86; Pulse 122; Resp 8 A; Pulse Ox 99% ; db 17:35 BP 126 / 84; Pulse 108; Resp 22 A; Pulse Ox 100% on 4 lpm NC; db 17:40 BP 120 / 93; Pulse 119; Resp 17; Pulse Ox 100% on 4 lpm NC; db 17:45 BP 104 / 78; Pulse 112; Resp 22; Pulse Ox 100% on 4 lpm NC; db 17:55 BP 121 / 79; Pulse 95; Resp 18; Pulse Ox 100% on 4 lpm NC; db 19:00 BP 115 / 68; Pulse 95; Resp 14; Pulse Ox 100% ; bp 20:00 BP 91 / 57; Pulse 72; Resp 12; Pulse Ox 96% on R/A; pf1 21:00 BP 117 / 71; Pulse 87; Resp 17; Pulse Ox 100% ; pf1 22:57 BP 107 / 80; Pulse 67; Resp 15 S; Temp 98.1(O); Pulse Ox 100% ; aa9 11/28 00:07 BP 113 / 70; Pulse 77; Resp 15 S; Pulse Ox 100% ; aa9 00:45 BP 113 / 65; Pulse 77; Resp 14; Temp 98; Pulse Ox 100% on R/A; Pain 0/10; pf1 00:45 Pain Scale: Adult pf1 Yas Coma Score: 11/27 18:00 Eye Response: none(1). Motor Response: none(1). Verbal Response: none(1). Total: 3. cp MDM: 17:41 Patient medically screened. cp 11/28 00:20 Data reviewed: vital signs, nurses notes, lab test result(s), EKG, radiologic studies, cp CT scan. 00:20 Consideration of Admission/Observation Escalation of care including cp admission/observation considered. I considered the following discharge prescriptions or medication management in the emergency department Medications were administered in the Emergency Department. See MAR. Independent interpretation of the following test(s) in the Emergency Department EKG: See my EKG interpretation above X-Ray: My interpretation is chest image negative for infiltrates. Test considered but Not performed: CT: traumagram. Historians other than the Patient: Friend: male friend. Counseling: I had a detailed discussion with the patient and/or guardian regarding: the historical points, exam findings, and any diagnostic results supporting the discharge/admit diagnosis, lab results, radiology results, to return to the emergency department if symptoms worsen or persist or if there are any questions or concerns that arise at home. Response to treatment: the patient's symptoms have markedly improved after treatment, and as a result, I will discharge patient. 11/27 17:42 Order name: Acetaminophen; Complete Time: 18:36 11/27 19:34 Interpretation: ACETA 17.8; Reviewed. 11/27 17:42 Order name: Basic Metabolic Panel; Complete Time: 18:36 11/27 18:37 Interpretation: Normal except: K 2.8; GLUC 135; CA 8.0. 11/27 17:42 Order name: CBC with Diff; Complete Time: 18:36 11/27 17:42 Order name: ETOH Level; Complete Time: 18:36 11/27 19:33 Interpretation: Abnormal: ETOH 130. 11/27 17:42 Order name: Hepatic Function; Complete Time: 18:36 11/27 19:33 Interpretation: Normal except: AST 10; ALT 15. 11/27 17:42 Order name: PT-INR; Complete Time: 18:36 11/27 17:42 Order name: Ptt, Activated; Complete Time: 18:36 11/27 17:42 Order name: Salicylate; Complete Time: 18:36 11/27 19:34 Interpretation: Reviewed. 11/27 17:42 Order name: Urinalysis w/ reflexes; Complete Time: 18:36 11/27 17:42 Order name: Urine Drug Screen; Complete Time: 18:36 11/27 17:54 Order name: ABG; Complete Time: 18:36 11/27 19:34 Interpretation: Normal except: ABGPH 7.27; ABGPCO2 46.9; ABGPO2 169.0; ABGHCO3 20.6; cp ABGSO2 98.6. 11/27 21:53 Order name: Tylenol Level; Complete Time: 00:18 11/27 17:42 Order name: CT Head C Spine; Complete Time: 18:45 11/27 18:45 Interpretation: Reviewed report. 11/27 17:51 Order name: XRAY Chest (1 view); Complete Time: 18:36 cp 11/27 17:42 Order name: EKG; Complete Time: 17:43 cp 11/27 17:42 Order name: EKG - Nurse/Tech; Complete Time: 17:55 cp 11/27 17:42 Order name: IV Saline Lock; Complete Time: 17:55 cp 11/27 17:42 Order name: Labs collected and sent; Complete Time: 17:55 cp 11/27 17:42 Order name: Suicide Screening (Energy); Complete Time: 17:55 cp 11/27 22:29 Order name: Vital Signs: to include temp; Complete Time: 22:58 cp Administered Medications: 11/27 17:37 Drug: Naloxone IVP 2 mg Route: IVP; Site: left antecubital; iw 17:40 Drug: NS 0.9% IV 1000 ml Route: IV; Rate: 1 bolus; Site: right antecubital; db 19:00 Drug: Potassium Chloride IV 20 mEq Route: IV; Rate: calculated rate; Site: right bp forearm; 21:00 Follow up: Response: No adverse reaction; Marked relief of symptoms; IV Status: pf1 Completed infusion 19:47 Drug: Potassium PO Effervescent Tablet 50 mEq Route: PO; aa9 20:30 Follow up: Response: No adverse reaction; Marked relief of symptoms pf1 19:47 Drug: Potassium PO Effervescent Tablet 25 mEq Route: PO; aa9 20:30 Follow up: Response: No adverse reaction; Marked relief of symptoms pf1 Disposition: 19:26 Co-signature as Attending Physician, Luis Ridley MD. Co-signature as Attending rt Physician, Luis Ridley MD I reviewed the patient's care provided by Advanced Practice Provider \T\ agree w/ the diagnosis \T\ care plan. I personally saw the pt \T\ performed a substantive portion of the visit, incldng all aspects of the (History/Exam/Medical Decision Making). PA/TECHNOLOGY SALES SPECIALIST's history reviewed, patient interviewed, and examined. HPI: Patient presents to the ED with unresponsiveness and apnea after reportedly taking Percocet. Was brought in by friend, no further history could be obtained. My personal exam of patient reveals: Patient is apneic, cyanotic, unresponsive to painful stimuli I evaluated the patient and saw the patient with ABIRL at the time of the patient's arrival, patient with clear opiate overdose. Tylenol level is below the level of toxicity. Plan to repeat Tylenol level as well as observe patient for 4 hours in the ED. Patient did receive Narcan, started breathing spontaneously and became awake, alert, oriented. Vital signs are stable.. Disposition Summary: 11/28/22 00:41 Discharge Ordered Location: Home cp Problem: new cp Symptoms: have improved cp Condition: Stable cp Diagnosis - Poisoning by other narcotics, accidental (unintentional), initial encounter cp - Hypokalemia cp Followup: cp - With: Emergency Department - When: As needed - Reason: Worsening of condition Discharge Instructions: - Discharge Summary Sheet cp - Potassium Content of Foods cp - Accidental Drug Poisoning, Adult cp - Hypokalemia cp Forms: - Medication Reconciliation Form cp - Thank You Letter cp - Antibiotic Education cp - Prescription Opioid Use cp Prescriptions: - Potassium Chloride 10 mEq Oral capsule, extended release - take 2 tablet by ORAL route once daily for 5 days; 10 tablet; Refills: 0, cp Product Selection Permitted Critical care time excluding procedures: 19:26 Critical care time: Bedside Care: 30 minutes. Total time: 30 minutes rt Signatures: Dispatcher [employer] EDMS Magalie Hastings RN RN iw Abisai Singh PA PA cp Surjit Colunga RN RN bp Bee Barone RN RN aa9 Sulma Moreno RN RN db Luis Ridley MD MD rt Kristina valdivia RN pf1 Corrections: (The following items were deleted from the chart) 11/28 20:11/27 17:50 Constitutional: The patient appears well developed, well nourished, cp cp 11/28 20:11/27 17:50 Head/Face: Normocephalic, atraumatic. cp cp 11/28 20:11/27 17:50 Eyes: Periorbital structures: appear normal, Conjunctiva: normal, no cp exudate, no injection, Sclera: no appreciated abnormality, Lids and lashes: appear normal, bilaterally, cp 11/28 20:11/27 17:50 ENT: External ear(s): are unremarkable, Ear canal(s): are normal, clear, cp TM's: dullness, bilaterally, Nose: is normal, Mouth: is normal, Posterior pharynx: Airway: no evidence of obstruction, patent, cp 11/28 20:11/27 17:50 Chest/axilla: Inspection: normal, cp cp 11/28 20:11/27 17:50 Cardiovascular: Rate: tachycardic, Rhythm: regular, Pulses: Pulses are 2+ cp in right carotid pulse. Edema: is not appreciated, JVD: is not appreciated, cp 11/28 20:11/27 17:50 Respiratory: severe repiratory distress is noted, cp cp 11/28 20:11/27 17:50 Abdomen/GI: Inspection: abdomen appears normal, cp cp 11/28 20:11/27 17:50 Neuro: Orientation: unable to test, unresponsive, Mentation: unable to cp test, unresponsive, cp 11/28 20:11/27 17:50 Musculoskeletal/extremity: Exam is negative for decreased range of motion, cp deformity, injury, cp
[2022-11-28 01:23] VITALS: O2SAT 100
[2022-11-28 01:28] VITALS: BP 113/65; TEMP 98
--- NOTE | 2022-11-28 05:34 | EKG ---
Test Date: 2022-11-27 Test Time: 17:47:50 Orthodontist Assistant: DWAYNE MEASUREMENT RESULTS: Intervals: Rate: 113 NM: 144 QRSD: 92 QT: 318 QTc: 436 Dana: P: 72 NM: 144 QRS: 89 T: 80 INTERPRETIVE STATEMENTS: Sinus tachycardia Right atrial enlargement Borderline ECG Compared to ECG 11/27/2021 15:21:39 Right-axis deviation no longer present Electronically Signed On 11-28-22 05:33:00 CDT by Stephen Garrison
--- NOTE | 2022-12-02 07:50 | EKG ---
Test Date: 2022-11-27 Test Time: 18:40:55 Automatic Lehr Operator: BP MEASUREMENT RESULTS: Intervals: Rate: 86 UT: 150 QRSD: 92 QT: 370 QTc: 442 Fleischmanns: P: 75 UT: 150 QRS: 86 T: 59 INTERPRETIVE STATEMENTS: Normal sinus rhythm Normal ECG Compared to ECG 11/27/2022 17:47:50 Sinus tachycardia no longer present Atrial abnormality no longer present Electronically Signed On 12-02-22 07:46:37 CDT by Stephen Garrison
== END 2022-11-28 01:03 | disposition home or self-care (01) ==
LOC: ER 17:35
DX: R40.4 Transient alteration of awareness (principal); T40.691A Poisoning by other narcotics, accidental (unintentional), initial encounter; E87.6 Hypokalemia
CPT/HCPCS: 96365; 93005 ×2; 85025; 80048; 36415; 85610; 80076; 85730; 81003; 80307; 70450; 72125; 71045; 82805; 51702; 96375; 99291; 99292; 96366; J3480; J2310; J7040; J7030; G0480 ×4